=== PATIENT | female | born 1975 ===

== ENCOUNTER 2022-05-26 17:30 | Outpatient (CLI) | payer MEDICAID ==
[2022-05-26 20:52] LABS: ALBUMIN 4.3 g/dL (3.2-5.5); BILIRUBIN,DIRECT 0.1 mg/dL (0.1-0.5); BILIRUBIN,TOTAL 0.7 mg/dL (0.2-1.0)
== END 2022-05-26 17:31 | disposition home or self-care (01) ==
LOC: LAB.N 17:30
PROVIDERS: ATTEND Internal Medicine Rheumatology
DX: M10.09 Idiopathic gout, multiple sites (principal); R74.01 Elevation of levels of liver transaminase levels
CPT/HCPCS: 36415; 80076